=== PATIENT | female | born 1950 | race African-American/Black ===

== ENCOUNTER → 2016-09-16 | Outpatient (CLI) | payer MEDICARE ==
[~2016-09-16] MED LIST: AMLO10TA2 PO; ASPI-557 PO; DICL50TA7 PO; GABA-336 PO; PRAV40TA3 PO; VALS1TAB77 PO
--- NOTE | 2016-09-16 12:37 | DI ---
Indication: ITS.REASON: M25.562 PAIN IN LEFT KNEE PROCEDURE: KNEE LEFT 3 VIEWS: Encounter: Initial Comparison: None Findings: There is no acute fracture, dislocation or malalignment identified. Joint spaces are maintained. There is a small 4 mm calcification seen projecting along the undersurface of the medial femoral condyle that could represent an osteophyte or loose body. Impression: No acute osseous abnormality. .
== END ==
LOC: IMA 11:51
PROVIDERS: ATTEND Family Medicine
DX: M25.562 Pain in left knee (principal)

== ENCOUNTER → 2016-09-23 | Outpatient (CLI) | payer MEDICARE | LOC: IMA 13:06 | PROVIDERS: ATTEND Family Medicine | DX: M85.88 Other specified disorders of bone density and structure, other site (principal); Z90.711 Acquired absence of uterus with remaining cervical stump; M54.5 Low back pain; N95.8 Other specified menopausal and perimenopausal disorders ==